=== PATIENT | female | born 1960 | race Caucasian/White ===

== ENCOUNTER → 2024-03-11 14:04 | Outpatient (REF) | payer OTHER, SELFPAY | LOC: HWWDC 14:04 | PROVIDERS: ATTENDING PHYSICIAN Nurse Practitioner Adult Health | DX: Z12.31 Encounter for screening mammogram for malignant neoplasm of breast (principal) | CPT/HCPCS: 77063; 77067 ==

== ENCOUNTER → 2025-03-10 18:12 | Outpatient (REF) | payer BC, SELFPAY | LOC: CLAB 18:12 | PROVIDERS: ATTENDING PHYSICIAN Physician Assistant | DX: H60.91 Unspecified otitis externa, right ear (principal) | CPT/HCPCS: 87070 ==

== ENCOUNTER → 2025-04-15 13:56 | Outpatient (REF) | payer BC, SELFPAY | LOC: PAVMRI 13:56 | PROVIDERS: ATTENDING PHYSICIAN Physician Assistant; FAMILY PHYSICIAN Nurse Practitioner Adult Health | DX: H90.41 Sensorineural hearing loss, unilateral, right ear, with unrestricted hearing on the contralateral side (principal) | CPT/HCPCS: 70553; A9575 ==